=== PATIENT | female | born 1955 | race Caucasian/White ===

== ENCOUNTER 2022-07-13 21:30 | Observation (INO) ==
[2022-07-13] MEDS ORDERED: 0.9 % Sodium Chloride 1,000 ML IVC ONE (22:00)
[2022-07-13 22:16] LABS: Bacteria,Urine Few per hpf (None-Few); Bilirubin,Urine Negative (Negative); Blood,Urine Trace (Negative); Clarity,Urine Clear (Clear); Color,Urine Light-Yellow (Yellow); Glucose,Urine (UA) Normal (Normal); Ketones,Urine Negative (Negative); Leukocyte Esterase,Urine Small (Negative); Mucus,Urine Few per lpf (None-Few); Nitrite,Urine Negative (Negative); PH,Urine 6.5 pH Units (5.0-8.0); Protein,Urine Negative (Neg-Trace); RBC,Urine 0-3 per hpf (0-3); Specific Gravity,Urine 1.006 (1.010-1.025); Urobilinogen,Urine Normal (Normal)
[2022-07-13 22:48] LABS: Basophils # 0.1 K/mcL (0.0-0.2); Basophils % 0.8 %; Eosinophils % 0.5 %; Hematocrit 39.7 % (35.3-44.9); Hemoglobin 13.6 g/dL (11.5-15.4); Immature Granulocytes % 0.2 % (0-4); Lymphocytes # 1.2 K/mcL (0.6-4.6); Lymphocytes % 19.1 %; Mean Corpuscular HGB Conc 34.3 g/dL (31.6-35.5); Mean Corpuscular Hemoglobin 31.6 pg (28.0-33.3); Mean Corpuscular Volume 92.1 fL (83.0-100.0); Mean Platelet Volume 9.4 fL (9.4-12.4); Monocytes # 0.4 K/mcL (0.0-1.3); Monocytes % 5.5 %; Neutrophils # 4.7 K/mcL (1.6-8.9); Platelet Count 197 K/mcL (140-400); Red Blood Count 4.31 M/mcL (3.82-4.97); Red Cell Distribution Width 13.5 % (11.5-14.5); Segmented Neutrophils % 73.9 %; White Blood Count 6.3 K/mcL (4.3-11.1)
[2022-07-13 22:55] LABS: Prothrombin Time 11.3 Seconds (9.4-12.1)
[2022-07-13] MEDS ORDERED: cefTRIAXone 1,000 MG in Water for inj. (sterile) 10 ML IVP ONE (23:04)
[2022-07-13 23:05] LABS: Alanine Aminotransferase 49 Units/L (7-52); Albumin 4.1 g/dL (3.5-5.7); Albumin/Globulin Ratio 1.5 (1.1-2.2); Alkaline Phosphatase 72 Units/L (34-104); Aspartate Amino Transferase 104 Units/L (13-39); BUN/Creatinine Ratio 13 (6-26); Bilirubin,Total 0.7 mg/dL (0.3-1.0); Blood Urea Nitrogen 12 mg/dL (8-23); Calcium 8.6 mg/dL (8.6-10.3); Carbon Dioxide 25 mEq/L (23-29); Chloride 103 mEq/L (98-107); Globulin 2.8 g/dL (2.4-3.5); Glucose 104 mg/dL (70-105); Magnesium 2.1 mg/dL (1.6-2.6); Osmolality,Calculated 284 (280-300); Phosphorous 3.4 mg/dL (2.7-4.5); Potassium 3.6 mEq/L (3.5-5.1); Sodium 137 mEq/L (136-145); Total Protein 6.9 g/dL (6.4-8.9)
[2022-07-13] MEDS ORDERED: Aspirin 81 MG TAB.CHEW PO STA (23:06)
[2022-07-13 23:07] LABS: Troponin I < 0.03 ng/mL (< 0.04)
[2022-07-14 00:04] LABS: Influenza A PCR Negative (Negative); Influenza B PCR Negative (Negative); Resp. Syncytial Virus PCR Negative (Negative)
[2022-07-14 00:11] LABS: SARS-CoV-2 by PCR (In House) Positive (Negative)
[2022-07-14] MEDS ORDERED: Naloxone 0.4 MG/ML INJ IVP PRN (00:28)
[2022-07-14] MEDS ORDERED: Ondansetron 4 MG/2 ML VIAL IVP PRN (00:28)
[2022-07-14] MEDS ORDERED: Acetaminophen 325 MG TABLET PO PRN (00:28)
[2022-07-14 03:52] LABS: Amphetamine Screen,Urine Negative ng/mL (Cutoff=1000); Barbiturate Screen,Urine Negative ng/mL (Cutoff=200); Benzodiazepines Screen,Urine Negative ng/mL (Cutoff=200); Cannabinoid Screen,Urine Negative ng/mL (Cutoff = 50); Cocaine Screen,Urine Negative ng/mL (Cutoff= 300); Opiate Screen,Urine Negative ng/mL (Cutoff=300); Phencyclidine Screen,Urine Negative ng/mL (Cutoff=25)
[2022-07-14 05:37] LABS: Eosinophils % 0.5 %; Hematocrit 42.8 % (35.3-44.9); Immature Granulocytes % 0.3 % (0-4); Lymphocytes % 28.7 %; Mean Corpuscular HGB Conc 32.7 g/dL (31.6-35.5); Mean Corpuscular Volume 94.9 fL (83.0-100.0); Mean Platelet Volume 9.9 fL (9.4-12.4); Monocytes % 4.5 %; Platelet Count 196 K/mcL (140-400); Red Blood Count 4.51 M/mcL (3.82-4.97); Red Cell Distribution Width 13.8 % (11.5-14.5); Segmented Neutrophils % 65.2 %; White Blood Count 7.6 K/mcL (4.3-11.1)
[2022-07-14 05:38] LABS: Basophils # 0.1 K/mcL (0.0-0.2); Basophils % 0.8 %; Lymphocytes # 2.2 K/mcL (0.6-4.6); Monocytes # 0.3 K/mcL (0.0-1.3); Neutrophils # 4.9 K/mcL (1.6-8.9)
[2022-07-14 05:59] LABS: Albumin 4.1 g/dL (3.5-5.7); Albumin/Globulin Ratio 1.4 (1.1-2.2); Bilirubin,Direct 0.2 mg/dL (0.0-0.2); Bilirubin,Indirect 0.4 mg/dL (0.0-1.0); Bilirubin,Total 0.6 mg/dL (0.3-1.0); Calcium 8.6 mg/dL (8.6-10.3); Globulin 2.9 g/dL (2.4-3.5); Potassium 3.5 mEq/L (3.5-5.1)
[2022-07-14 06:00] LABS: Chol/HDL Ratio 4.1 (0-4.9); Cholesterol 209 mg/dL (< 200); Ethanol < 10 mg/dL (Less than 10); HDL Cholesterol 51 mg/dL (40-59); LDL Cholesterol,Calculated 141 mg/dL (< 100); Triglycerides 87 mg/dL (< 150); Troponin I < 0.03 ng/mL (< 0.04)
[2022-07-14 06:09] LABS: Thyroid Stimulating Hormone 1.711 mcIU/mL (0.340-5.600)
[2022-07-14 06:18] LABS: Folate 15.1 ng/mL (3.0-16.0)
[2022-07-14 06:38] LABS: Estimated Average Glucose 114 mg/dl; Hemoglobin A1C 5.6 %
[2022-07-14] MEDS ORDERED: cefTRIAXone 1,000 MG in Water for inj. (sterile) 10 ML IVP SCH (09:00)
[2022-07-14 11:10] VITALS: BP 103/64; PULSE 66; TEMP 98.1; O2SAT 96
== END 2022-07-14 15:28 | disposition home or self-care (01) ==
LOC: EMEROOARM 21:30 → 3BNU 21:30
PROVIDERS: ADMIT Internal Medicine; ATTEND Internal Medicine